=== PATIENT | male | born 2000 | race Caucasian/White ===

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

== ENCOUNTER 2019-01-05 09:58 | Emergency (ER) | payer MEDICAID, OTHER ==
[2019-01-05] MEDS: IBUPROFEN 800 MG TAB PO (10:37)
[2019-01-05] MEDS: predniSONE 20 MG TAB PO (10:38)
== END 2019-01-05 10:56 | disposition home or self-care (01) ==
LOC: FTE 09:58
DX: M79.604 Pain in right leg (principal); M54.31 Sciatica, right side
CPT/HCPCS: 99283; J7512